=== PATIENT | male | born 1960 | race Caucasian/White ===

== ENCOUNTER → 2022-06-23 | Outpatient (CLI) | payer OTHER ==
[~2022-06-23] MED LIST: ELIQUIS5 M3 PO; ERYT.5TO LEFTEYE; Fenofibrate134 MG PO; LOSA50; OMEP20ER PO; Refresh Liquige15 ML LEFTEYE; Terazosin HCl10 MG; VRAYLAR1.5 MG PO
[2022-06-23 16:25] LABS: BASOPHILS ABSOLUTE AUTO 0.04 K/mm3 (0.00-0.23); BASOPHILS PERCENT AUTO 0 % (0-2); EOSINOPHILS ABSOLUTE AUTO 0.07 K/mm3 (0.00-0.68); EOSINOPHILS PERCENT AUTO 1 % (0-6); Hematocrit 36.4 % (37.0-53.0); Hemoglobin 12.7 g/dL (13.5-17.5); IMMATURE GRAN ABSOLUTE AUTO 0.09 K/mm3 (0.00-0.10); IMMATURE GRAN PERCENT AUTO 1 % (0-1); LYMPHOCYTES ABSOLUTE AUTO 0.71 K/mm3 (0.84-5.20); LYMPHOCYTES PERCENT AUTO 5 % (21-46); MONOCYTES ABSOLUTE AUTO 0.72 K/mm3 (0.16-1.47); MONOCYTES PERCENT AUTO 6 % (4-13); Mean Corpuscular HGB 33.6 pg (26.0-34.0); Mean Corpuscular HGB Conc 34.9 g/dL (31.5-36.5); Mean Corpuscular Volume 96 fL (80-100); NEUTROPHILS ABSOLUTE AUTO 11.45 K/mm3 (1.96-9.15); NEUTROPHILS PERCENT AUTO 88 % (41-73); Platelet Count 192 K/mm3 (150-400); RDW Coefficient Variation 14.5 % (11.7-14.2); RDW Standard Deviation 50.7 fL (35.1-46.3); Red Blood Cell Count 3.78 M/mm3 (4.30-5.90); White Blood Cell Count 13.08 K/mm3 (4.00-11.30)
[2022-06-23 16:37] LABS: Albumin/Globulin Ratio 0.6 (0.8-1.8); Bilirubin, Total 1.6 mg/dL (0.1-1.0); Potassium, Blood 3.5 mmol/L (3.5-5.5)
== END | disposition home or self-care (01) ==
LOC: LAB SHORT 16:21
PROVIDERS: Physician Assistant
DX: R10.9 Unspecified abdominal pain (principal)
CPT/HCPCS: 80053; 83690; 85025

== ENCOUNTER 2022-08-14 11:21 | Inpatient (IN) | payer OTHER ==
[~2022-08-14] VITALS: Ht 182.9 cm; Wt 90.9 kg
[~2022-08-14 11:21] MED LIST changes: +AMOCLA875 PO; +FURO40 PO; +LISI10 PO; -LOSA50; +LOSA50 PO; +MELATONIN5 M1 PO; +METO50ER PO; +PROBIOTIC1 EA13 PO; -Terazosin HCl10 MG; +Terazosin HCl10 MG PO
[2022-08-14 12:23] LABS: BASOPHILS ABSOLUTE AUTO 0.03 K/mm3 (0.00-0.23); BASOPHILS PERCENT AUTO 0 % (0-2); EOSINOPHILS ABSOLUTE AUTO 0.02 K/mm3 (0.00-0.68); EOSINOPHILS PERCENT AUTO 0 % (0-6); Hematocrit 39.1 % (37.0-53.0); Hemoglobin 13.7 g/dL (13.5-17.5); IMMATURE GRAN ABSOLUTE AUTO 0.09 K/mm3 (0.00-0.10); IMMATURE GRAN PERCENT AUTO 1 % (0-1); LYMPHOCYTES ABSOLUTE AUTO 0.94 K/mm3 (0.84-5.20); LYMPHOCYTES PERCENT AUTO 7 % (21-46); MONOCYTES ABSOLUTE AUTO 1.22 K/mm3 (0.16-1.47); MONOCYTES PERCENT AUTO 9 % (4-13); Mean Corpuscular HGB 33.1 pg (26.0-34.0); Mean Corpuscular Volume 94 fL (80-100); Mean Platelet Volume 9.6 fL (9.1-12.4); NEUTROPHILS ABSOLUTE AUTO 11.88 K/mm3 (1.96-9.15); NEUTROPHILS PERCENT AUTO 84 % (41-73); Platelet Count 207 K/mm3 (150-400); RDW Coefficient Variation 13.5 % (11.7-14.2); RDW Standard Deviation 47.2 fL (35.1-46.3); Red Blood Cell Count 4.14 M/mm3 (4.30-5.90); White Blood Cell Count 14.18 K/mm3 (4.00-11.30)
[2022-08-14 12:48] LABS: Albumin, Blood 3.1 g/dL (3.4-5.0); Albumin/Globulin Ratio 0.5 (0.8-1.8); Bilirubin, Total 1.5 mg/dL (0.1-1.0); Bun/Creatinine Ratio 18.7 (12.0-20.0); Calcium, Blood 9.2 mg/dL (8.5-10.1); Creatinine, Blood 0.91 mg/dL (0.60-1.20); Globulin, Blood 5.7 g/dL (2.2-4.0); Total Protein, Blood 8.8 g/dL (6.4-8.2)
[2022-08-14 19:08] LABS: Source, Urine Clean Catch
[2022-08-14 19:18] LABS: Appearance, Urine Clear (Clear); Blood, Urine 4+ (Neg); Color, Urine Amber (P-Yellow); Glucose Qualitative, Urine Neg (Neg); Ketones, Urine 1+ (Neg); Leukocyte Esterase, Urine 1+ (Neg); Nitrite, Urine Pos (Neg); Protein, Urine 2+ (Neg); Specific Gravity, Urine 1.015 (1.003-1.022); Urobilinogen, Urine 3+ (Normal)
[2022-08-14 19:28] LABS: Bilirubin, Urine 1+ (Neg)
[2022-08-14 19:30] LABS: Bacteria Mod /hpf; Hyaline Casts 0-2 /lpf (0-2); Mucus Mod (0-Heavy); Squamous Epithelial Cells Rare /hpf (Few)
[2022-08-15 04:54] LABS: BASOPHILS ABSOLUTE AUTO 0.03 K/mm3 (0.00-0.23); BASOPHILS PERCENT AUTO 0 % (0-2); EOSINOPHILS ABSOLUTE AUTO 0.04 K/mm3 (0.00-0.68); EOSINOPHILS PERCENT AUTO 0 % (0-6); Hematocrit 35.4 % (37.0-53.0); Hemoglobin 12.3 g/dL (13.5-17.5); IMMATURE GRAN ABSOLUTE AUTO 0.08 K/mm3 (0.00-0.10); IMMATURE GRAN PERCENT AUTO 1 % (0-1); LYMPHOCYTES ABSOLUTE AUTO 0.81 K/mm3 (0.84-5.20); LYMPHOCYTES PERCENT AUTO 6 % (21-46); MONOCYTES ABSOLUTE AUTO 1.12 K/mm3 (0.16-1.47); MONOCYTES PERCENT AUTO 9 % (4-13); Mean Corpuscular HGB Conc 34.7 g/dL (31.5-36.5); Mean Corpuscular Volume 95 fL (80-100); Mean Platelet Volume 9.3 fL (9.1-12.4); NEUTROPHILS ABSOLUTE AUTO 10.84 K/mm3 (1.96-9.15); NEUTROPHILS PERCENT AUTO 84 % (41-73); Platelet Count 180 K/mm3 (150-400); RDW Coefficient Variation 13.6 % (11.7-14.2); RDW Standard Deviation 47.8 fL (35.1-46.3); Red Blood Cell Count 3.73 M/mm3 (4.30-5.90); White Blood Cell Count 12.92 K/mm3 (4.00-11.30)
--- NOTE | 2022-08-15 04:54 | NUR ---
SHIFT SUMMARY: Pt arrived on unit from ED around 0. Overnight patient denied having nausea. Did state he was having some diarrhea. Pt had some pain but denied need for any pain medications. 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 When ambulating pt HR would become tachy but after during rest it would lower back to a-fib cvr. Pt states he is SOB at times, especially with exertion. Has IVF infusing and getting iv abx per MAR.
[2022-08-15 05:12] LABS: Bun/Creatinine Ratio 17.1 (12.0-20.0); Calcium, Blood 9.1 mg/dL (8.5-10.1); Creatinine, Blood 0.88 mg/dL (0.60-1.20); Potassium, Blood 3.9 mmol/L (3.5-5.5)
[2022-08-15 12:07] LABS: International Normalized Ratio 1.21; Prothrombin Time Results 12.5 Sec (9.7-11.5)
[2022-08-15] MEDS ORDERED: SPIR25 PO (15:18)
--- NOTE | 2022-08-15 16:36 | NUR ---
SHIFT SUMMARY PT ADVANCED TO CLEAR LIQUID DIET AFTER CT GUIDED ASPIRATION WAS MOVED TO WEDNESDAY. PT TOLERATING THIS WELL. TELE CALLED AT 1625 AND REPORTED THAT PT HAD A RUN OF RVR IN THE 180S FOR 18 SECS. PT NOW BACK DOWN TO THE 100S WHILE RESTING IN BED. DR. RICHA SHARP. PT REPORTED DIARRHEA THAT HAS STARTED THIS SHIFT AND HAS URGENCY RELATED TO THIS. IV FLUIDS MAINTAINED AT 50ML/HR. PAIN MEDS INCREASED TO 25-50 MCG TO HELP WITH PAIN CONTROL. NO OTHER ACUTE CHANGES IN ASSESSMENT AT THIS TIME. VS REVIEWED. PT RESTING IN BED. GIRLFRIEND AT BEDSIDE. CALL LIGHT IN REACH.
[2022-08-16 04:59] LABS: BASOPHILS ABSOLUTE AUTO 0.04 K/mm3 (0.00-0.23); BASOPHILS PERCENT AUTO 0 % (0-2); EOSINOPHILS ABSOLUTE AUTO 0.11 K/mm3 (0.00-0.68); EOSINOPHILS PERCENT AUTO 1 % (0-6); Hemoglobin 11.8 g/dL (13.5-17.5); IMMATURE GRAN ABSOLUTE AUTO 0.09 K/mm3 (0.00-0.10); IMMATURE GRAN PERCENT AUTO 1 % (0-1); LYMPHOCYTES ABSOLUTE AUTO 1.25 K/mm3 (0.84-5.20); LYMPHOCYTES PERCENT AUTO 10 % (21-46); MONOCYTES ABSOLUTE AUTO 0.87 K/mm3 (0.16-1.47); MONOCYTES PERCENT AUTO 7 % (4-13); Mean Corpuscular HGB 32.2 pg (26.0-34.0); Mean Corpuscular HGB Conc 33.7 g/dL (31.5-36.5); Mean Corpuscular Volume 95 fL (80-100); Mean Platelet Volume 9.6 fL (9.1-12.4); NEUTROPHILS ABSOLUTE AUTO 9.65 K/mm3 (1.96-9.15); NEUTROPHILS PERCENT AUTO 81 % (41-73); Platelet Count 183 K/mm3 (150-400); RDW Coefficient Variation 13.4 % (11.7-14.2); RDW Standard Deviation 47.3 fL (35.1-46.3); Red Blood Cell Count 3.67 M/mm3 (4.30-5.90); White Blood Cell Count 12.01 K/mm3 (4.00-11.30)
--- NOTE | 2022-08-16 05:09 | NUR ---
A/OX4, CALM AND COOPERATIVE. C/O 04/26 ABD PAIN; PRN FENTYNAL PROVIDES EFFECTIVE RELIEF PER PATIENT. IND IN ROOM. TELE: A-FIB WITH HR LOW 100's. PIV R AC; IVF INFUSING PER ORDERS. TOLERATING CLEAR LIQUID DIET WITH NO NAUSEA. WILL BE NPO AT MIDNIGHT FOR PROCEDURE ON 08/17/22. SLEEP PROMOTED, CALL LIGHT IN REACH, ENCOURAGED TO MAKE NEEDS KNOWN.
[2022-08-16 05:17] LABS: Albumin, Blood 2.4 g/dL (3.4-5.0); Anion Gap 7 mmol/L (6-16); Blood Urea Nitrogen 12 mg/dL (8-24); CO2, Blood 25 mmol/L (21-32); Calcium, Blood 8.8 mg/dL (8.5-10.1); Chloride, Blood 107 mmol/L (98-108); Glomerular Filtration Rate 99 (60-); Glucose, Blood 110 mg/dL (70-99); Phosphorus, Blood 3.1 mg/dL (2.5-4.9); Potassium, Blood 3.5 mmol/L (3.5-5.5); Sodium, Blood 139 mmol/L (136-145)
--- NOTE | 2022-08-16 17:12 | NUR ---
SHIFT SUMMARY PT HAD CT GUIDED DRAIN PLACED TODAY TO R SIDE OF HIS LOWER BACK INTO HIS PELVIS. PT TOLERATED THIS WELL PER IMAGING STAFF. OUTPUT IS LIGHT BROWN WITH SOME BLOOD CLOTS MIXED IN. FOWL SMELLING. DRAINAGE FOR THIS SHIFT MARKED ON BAG. PT UPGRADED TO FULL LIQUID DIET TODAY. AMBULATING IN ROOM INDEPENDENTLY AND TO BATHROOM. PT STATES ABD PAIN IS WELL MANAGED BUT IS HAVING SOME PAIN AT THE INSERTION SITE FOR HIS DRAIN. MEDICATED PER EMAR. NO OTHER ACUTE CHANGES IN ASSESSMENT AT THIS TIME. VS REVIEWED. PT RESTING IN BED CURRENTLY. CALL LIGHT IN REACH.
[2022-08-17 04:24] LABS: Hemoglobin 11.8 g/dL (13.5-17.5); Mean Corpuscular HGB 32.2 pg (26.0-34.0); Mean Corpuscular HGB Conc 33.7 g/dL (31.5-36.5); Mean Corpuscular Volume 96 fL (80-100); Mean Platelet Volume 9.8 fL (9.1-12.4); Platelet Count 200 K/mm3 (150-400); RDW Coefficient Variation 13.4 % (11.7-14.2); RDW Standard Deviation 47.3 fL (35.1-46.3); Red Blood Cell Count 3.66 M/mm3 (4.30-5.90); White Blood Cell Count 6.92 K/mm3 (4.00-11.30)
[2022-08-17 04:55] LABS: BAND PERCENT MAN 1 % (0-8); BASOPHILS PERCENT MAN 0 % (0-2); EOSINOPHILS ABSOLUTE MAN 0.13 K/mm3 (0.00-0.68); EOSINOPHILS PERCENT MAN 2 % (0-6); LYMPHOCYTES % ATYPICAL MANUAL 3 % (0-0); LYMPHOCYTES ABSOLUTE MAN 1.86 K/mm3 (0.84-5.20); LYMPHOCYTES PERCENT MAN 24 % (21-46); METAMYELOCYTE ABSOLUTE MAN 0.06 K/mm3 (0.00-0.00); METAMYELOCYTE PERCENT MAN 1 % (0-0); MONOCYTES ABSOLUTE MAN 0.27 K/mm3 (0.16-1.47); MONOCYTES PERCENT MAN 4 % (4-13); MYELOCYTE ABSOLUTE MAN 0.06 K/mm3 (0.00-0.00); MYELOCYTE PERCENT MAN 1 % (0-0); NEUTROPHILS ABSOLUTE MAN 4.49 K/mm3 (1.96-9.15); SEG NEUTROPHILS PERCENT MAN 64 % (41-73); TOTAL CELLS COUNTED 100
--- NOTE | 2022-08-17 05:45 | NUR ---
A/0X4; CALM AND COOPERATIVE. IND IN ROOM. C/O PAIN AT 7/10 TO DRAIN INSERTION SITE; PRN FENTYNAL HELPFUL PER PATIENT. DRAIN DRESSING CDI. TELE: A-FIB WITH HR 90's (BRIEFLY UP TO 150 AMBULATING PER REFINERY OPERATOR LIGHT ENDS RECOVERY). CALL LIGHT IN REACH; ENCOURAGED TO MAKE NEEDS KNOWN.
[2022-08-17] MEDS ORDERED: Acetaminophen650 M1 PO (14:32)
[2022-08-17] MEDS ORDERED: METO25ER PO (14:33)
[2022-08-17] MEDS ORDERED: AMOCLA875 PO (14:33)
[2022-08-17] MEDS ORDERED: VISBIOME 112.51 EACH PO (14:34)
== END 2022-08-17 15:11 | disposition home or self-care (01) | DRG 391 ==
LOC: ER 11:21 → MEDS 19:36
PROVIDERS: Internal Medicine; Physician Assistant; Surgery; ADMIT Family Medicine
PROC: 0W9G30Z Drainage of Peritoneal Cavity with Drainage Device, Percutaneous Approach (ICD-10-PCS; principal; 2022-08-16)
DX: K57.20 Diverticulitis of large intestine with perforation and abscess without bleeding (principal); K65.1 Peritoneal abscess; I50.22 Chronic systolic (congestive) heart failure; I48.20 Chronic atrial fibrillation, unspecified; I42.9 Cardiomyopathy, unspecified; E87.1 Hypo-osmolality and hyponatremia; K63.2 Fistula of intestine; I11.0 Hypertensive heart disease with heart failure; F32.A Depression, unspecified; N40.0 Benign prostatic hyperplasia without lower urinary tract symptoms; K21.9 Gastro-esophageal reflux disease without esophagitis; Z90.49 Acquired absence of other specified parts of digestive tract; Z98.890 Other specified postprocedural states; Z91.013 Allergy to seafood; F17.210 Nicotine dependence, cigarettes, uncomplicated; D72.828 Other elevated white blood cell count
CPT/HCPCS: 36415; 49405; 74177; 80048; 80053; 80069; 81001; 83690; 85025; 85610; 87070; 87075; 87076; 87077; 87086; 87186; 87205; A9270; C9113; J2543; J3010; J7030; Q9967

== ENCOUNTER 2023-08-17 08:18 | Day surgery (SDC) | payer OTHER ==
[2023-08-17] VITALS (19 sets, daily range): BP systolic 75–129; BP diastolic 55–81
[~2023-08-17] VITALS: Ht 182.9 cm; Wt 93.9 kg
[~2023-08-17 08:18] MED LIST changes: +Acetaminophen650 M1 PO; +ENTRESTO 49 MG1 EACH PO; +ESCI10 PO; +METO25ER PO; +SPIR25 PO; +VISBIOME 112.51 EACH PO
--- NOTE | 2023-08-17 12:10 | NUR ---
PT BACK TO RECOVERY ROOM. PT SITTIN UP IN RECLINER, GIVEN COFFEE AND BREAKFAST. PT SPOUSE TO BEDSIDE. 9 CC AIR IN TR BAND ON R WRIST. NO BLEEDING OR HEMATOMA NOTED.
--- NOTE | 2023-08-17 12:38 | NUR ---
BREAKFAST TRAY COMPLETED. RIGHT WRIST CHECKED. FULLNESS NOTED 1-2 CM ABOVE AND BELOW THE TR BAND BUT UNCHANGED OVER THE LAST 15 MINUTES. CONTINUE TO MONITOR. VVS. NO BLEEDING, NO PAIN NOTED FROM THE PATIENT. STEPPED AWAY FROM THE BEDSIDE. CALL LIGHT IN REACH.
--- NOTE | 2023-08-17 14:41 | NUR ---
1415 500 ML BOLUS STARTED FOR LOW NIBP ORDERED BY DR. COSTELLO.
--- NOTE | 2023-08-17 14:41 | NUR ---
1400 STARTED REMOVING AIR FROM THE TR BAND.
--- NOTE | 2023-08-17 14:42 | NUR ---
2401 TR BAND REMOVED AND SITE CLEANED. CLOTH DOT APPLIED AND REVIEWED CARE INSTRUCTIONS WITH THE PATIENT AND LIFE PARTNER. ALL QUESTIONS ANSWERED.
--- NOTE | 2023-08-17 15:05 | NUR ---
SPOKE WITH DR. 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 PIV DISCONTINUED AND PRESSURE DRESSING APPLIED. VVS. PATIETN DRESSED ADN DISCHARGED WITH INSTRUCTIONS.
== END 2023-08-17 14:30 | disposition home or self-care (01) ==
LOC: MHTC 08:18
DX: I11.0 Hypertensive heart disease with heart failure (principal); I50.812 Chronic right heart failure; R93.1 Abnormal findings on diagnostic imaging of heart and coronary circulation; I48.91 Unspecified atrial fibrillation; E78.5 Hyperlipidemia, unspecified; I42.9 Cardiomyopathy, unspecified; F32.A Depression, unspecified
CPT/HCPCS: 76937; 93458; 99152; C1769; C1887; C1894; J1644; J2250; J3010; J7030; J7050; Q9967